=== PATIENT | male | born 1950 | race Two or more races ===

== ENCOUNTER 2024-10-19 12:00 | Emergency (ER) | payer OTHER ==
[~2024-10-19] VITALS: Ht 177.8 cm; Wt 97.5 kg
[2024-10-19] MEDS ORDERED: ZESTRIL5 MG PO (12:15)
[2024-10-19] MEDS ORDERED: ALLOPURINOL300 MG PO (12:16)
[2024-10-19] MEDS ORDERED: MELOXICAM15 MG PO (12:16)
[2024-10-19] MEDS ORDERED: DIALYVITE TABL1 EACH PO (12:17)
[2024-10-19] MEDS ORDERED: CEFTRIAXONE SODIUM 1,000 MG VIAL IM ONE (13:00)
[2024-10-19] MEDS ORDERED: LIDOCAINE HCL 1% 10ML VIAL PERCUT ONE (13:00)
[2024-10-19] MEDS ORDERED: CEFUROXIME500 MG PO (13:19)
[2024-10-19] MEDS ORDERED: PEPCID AC20 MG PO (13:19)
== END 2024-10-19 13:31 | disposition home or self-care (01) ==
LOC: ER 12:00
DX: S91.111A Laceration without foreign body of right great toe without damage to nail, initial encounter (principal); W45.8XXA Other foreign body or object entering through skin, initial encounter; Y93.89 Activity, other specified; Y92.89 Other specified places as the place of occurrence of the external cause; Y99.9 Unspecified external cause status
CPT/HCPCS: 12004; 96372; 99283; J0696